=== PATIENT | female | born 1990 | race African-American/Black ===

== ENCOUNTER 2017-06-13 13:13 | Emergency (ER) | payer MEDICAID ==
[~2017-06-13] VITALS: Ht 165.1 cm; Wt 107.0 kg
[2017-06-13 13:30] VITALS: BP_SYST 114
[2017-06-13] MEDS ORDERED: IBUPROFEN 800 MG TABLET PO ONE (14:45)
[2017-06-13 15:36] VITALS: BP_SYST 114
== END 2017-06-13 15:36 | disposition home or self-care (01) ==
LOC: SED 13:13
DX: S93.402A Sprain of unspecified ligament of left ankle, initial encounter (principal); X58.XXXA Exposure to other specified factors, initial encounter; Y93.89 Activity, other specified; Y92.89 Other specified places as the place of occurrence of the external cause; Y99.8 Other external cause status
CPT/HCPCS: 99284